=== PATIENT | female | born 1965 | race African-American/Black ===

== ENCOUNTER 2025-02-16 08:48 | Day surgery (SDC) | payer BC ==
[2025-02-10 12:33] VITALS: BMI 36.4
[2025-02-16] MEDS ORDERED: BSS (NA/CA/MG/K) BALANCED SALT SOLUTION OPHTH SOLN 15 ML BOTTLE ONE (09:03)
[2025-02-16] MEDS ORDERED: TETRACAINE 0.5% OPHTH SOLN 2 ML BOTTLE ONE (09:03)
[2025-02-16] MEDS ORDERED: EPINEPHrine 1:1000 P/F - 1 MG/ML AMP ONE (09:03)
[2025-02-16] MEDS ORDERED: NEO/POLYMYX B SULF/DEXAMETH OPHTHALMIC 5ML BOTTLE ONE (09:03)
[2025-02-16] MEDS ORDERED: CARBACHOL 0.01% INTRA-OCULAR 1.5 ML VIAL ONE (09:03)
[2025-02-16] MEDS ORDERED: LIDOCAINE 1% P/F 10 MG/ML VIAL ONE (09:03)
[2025-02-16] MEDS: PHENYLEPHRINE 2.5% OPTHALMIC DROP 2ML BOTTLE ONE (09:10)
[2025-02-16] MEDS: CIPROFLOXACIN 0.3% EYE DROPS 5 ML BOTTLE ONE (09:10)
[2025-02-16] MEDS: TROPICAMIDE 1% 3 ML EYE DROPS ONE (09:10)
[2025-02-16] MEDS: CYCLOPENTOLATE 2% OPHTH SOLN 2 ML BOTTLE ONE (09:10)
[2025-02-16 09:22] VITALS: RESP 18
[2025-02-16] MEDS ORDERED: MIDAZOLAM HCL 2 MG/2 ML SINGLE DOSE VIAL ONE (09:47)
[2025-02-16 11:10] VITALS: TEMP 97.4
[2025-02-16 12:31] VITALS: BP 130/64; PULSE 68
== END 2025-02-16 12:02 | disposition home or self-care (01) ==
LOC: FASU 08:48
PROVIDERS: ATTEND Ophthalmology
PROC: 08RK3JZ Replacement of Left Lens with Synthetic Substitute, Percutaneous Approach (ICD-10-PCS; principal; 2025-02-16 10:47)
DX: H26.8 Other specified cataract (principal)
CPT/HCPCS: 66984; V2632